=== PATIENT | female | born 1950 | race Hispanic/Latino ===

== ENCOUNTER 2019-03-12 08:43 | Day surgery (SDC) | payer MEDICARE ==
[~2019-03-12] VITALS: Ht 162.6 cm; Wt 77.1 kg
[~2019-03-12 08:43] MED LIST: ASPI-555 PO; OMEG-148 PO; SODIUM CHLORIDE 0.9% 1000ML 1,000 ML IV ONE; WHEA1POW2 PO
[2019-03-12 10:57] VITALS: BP 139/73
[2019-03-12 11:40] VITALS: BP 122/72
[2019-03-12 11:45] VITALS: BP 128/72
[2019-03-12 11:50] VITALS: BP 122/72
[2019-03-12 11:55] VITALS: BP 132/72
[2019-03-12 12:00] VITALS: BP 134/72
--- NOTE | 2019-03-12 12:02 | NUR ---
dc pt dc home via [place],no distress noted.pt denied any pain or discomforts.pt stable. pt accompanied by spouse
== END 2019-03-12 12:02 | disposition home or self-care (01) ==
LOC: ENDO 08:43 → DAH 08:43 → ENDO 12:02
PROVIDERS: ATTEND Internal Medicine Gastroenterology
DX: R14.0 Abdominal distension (gaseous) (principal); K29.50 Unspecified chronic gastritis without bleeding; K21.9 Gastro-esophageal reflux disease without esophagitis; Z86.010 Personal history of colon polyps; K29.70 Gastritis, unspecified, without bleeding; Z90.710 Acquired absence of both cervix and uterus
CPT/HCPCS: 43239; 45378; 88305; A4215; A4221; A4222; A4223; A4606; A4615; A4663; J7030 ×2; G0121

== ENCOUNTER → 2021-12-27 | Outpatient (CLI) | payer MEDICARE ==
[~2021-12-27] MED LIST changes: -ASPI-555 PO; +ASPI-556 PO; -SODIUM CHLORIDE 0.9% 1000ML 1,000 ML IV ONE
== END | disposition home or self-care (01) ==
LOC: SHCH 10:00
PROVIDERS: ATTEND Internal Medicine Cardiovascular Disease
DX: R55 Syncope and collapse (principal)
CPT/HCPCS: 93880

== ENCOUNTER → 2021-12-29 | Outpatient (CLI) | payer MEDICARE | END | disposition home or self-care (01) | LOC: SHCH 15:39 | PROVIDERS: ATTEND Internal Medicine Cardiovascular Disease | DX: I51.7 Cardiomegaly (principal); R55 Syncope and collapse | CPT/HCPCS: 93306 ==

== ENCOUNTER → 2022-10-23 | Outpatient (CLI) | payer MEDICARE | END | disposition home or self-care (01) | LOC: RAH 10:53 | PROVIDERS: ATTEND Family Medicine | DX: M17.11 Unilateral primary osteoarthritis, right knee (principal); M25.861 Other specified joint disorders, right knee; M25.561 Pain in right knee | CPT/HCPCS: 73562 ==

== ENCOUNTER 2024-04-21 06:45 | Day surgery (SDC) | payer MEDICARE ==
[2024-04-21] VITALS (10 sets, daily range): BP systolic 124–170; BP diastolic 64–81; PULSE 60–77; RESP 15–18; TEMP 97.6–98.1
[~2024-04-21] VITALS: Ht 162.6 cm; Wt 76.2 kg
[~2024-04-21 06:45] MED LIST changes: -ASPI-556 PO; +CHOL-34 PO; +GLUC-252 PO; +MULT-1203 PO; -OMEG-148 PO; +RED55CAP PO; -WHEA1POW2 PO
[2024-04-21] MEDS: 0.9%NACL 1000ML 1,000 ML IV ONE (08:21)
[2024-04-21] MEDS ORDERED: proPOFol 10 MG/ML 20ML VIAL IV ONE ×2 (09:01)
== END 2024-04-21 10:30 | disposition home or self-care (01) ==
LOC: DAH 06:45 → ENDO 06:45
PROVIDERS: ATTEND Internal Medicine Gastroenterology
DX: Z12.11 Encounter for screening for malignant neoplasm of colon (principal); D12.2 Benign neoplasm of ascending colon; Z86.0100 Personal history of colon polyps, unspecified; K21.9 Gastro-esophageal reflux disease without esophagitis; Z90.710 Acquired absence of both cervix and uterus; Z79.82 Long term (current) use of aspirin; Z79.899 Other long term (current) drug therapy; Z98.890 Other specified postprocedural states
CPT/HCPCS: 45380; J7030; J2704; A4215 ×4; A4222 ×2; A4663 ×2; A4620 ×2; A4223 ×2; A4221 ×2; A4606 ×2; J3490